=== PATIENT | female | born 1955 | race Caucasian/White ===

== ENCOUNTER → 2018-01-16 | Outpatient (CLI) | payer BC | END | disposition home or self-care (01) | LOC: RAD 08:43 | PROVIDERS: ATTEND Orthopaedic Surgery | DX: S92.002A Unspecified fracture of left calcaneus, initial encounter for closed fracture (principal); X58.XXXA Exposure to other specified factors, initial encounter; Y93.89 Activity, other specified; Y92.89 Other specified places as the place of occurrence of the external cause; Y99.2 Volunteer activity ==